=== PATIENT | female | born 1935 | race African-American/Black ===

== ENCOUNTER 2018-09-08 09:14 | Emergency (ER) | payer MEDICAID, OTHER ==
[~2018-09-08] VITALS: Ht 165.1 cm; Wt 95.0 kg
[~2018-09-08 09:14] MED LIST: DIGO250T81; HYDR-4005 PO; HYDR100T31; LOSA50TA20; METF-414; NORT25CA5 PO; POTA20TA12; SIMV20TA6 PO; TRIA1TAB5 PO; WARF5TAB76 PO
[2018-09-08 09:24] VITALS: BP 120/57
== END 2018-09-08 10:59 | disposition left against medical advice (07) ==
LOC: ER 09:14
DX: Z53.21 Procedure and treatment not carried out due to patient leaving prior to being seen by health care provider (principal)
CPT/HCPCS: 82962; 93005

== ENCOUNTER 2021-04-25 22:43 | Emergency (ER) | payer OTHER ==
[~2021-04-25] VITALS: Ht 172.7 cm; Wt 86.0 kg
[~2021-04-25 22:43] MED LIST changes: +DIGO-31; -DIGO250T81; -LOSA50TA20; +LOSA50TA41; +SIMV-43 PO; -SIMV20TA6 PO
[2021-04-26 00:08] LABS: BASOPHILS % 1.3 % (0.0-2.0); EOSINOPHILS % 2.1 % (0.0-5.0); HEMATOCRIT. 39.1 % (36.0-48.0); HEMOGLOBIN. 12.3 g/dL (12.0-16.0); MEAN CORPUSCULAR VOLUME 86.1 fL (81.0-99.0); MEAN PLATELET VOLUME 8.9 fl (7.4-10.4); MONOCYTES % 9.3 % (2.0-8.0); NEUTROPHILS % 56.3 % (40.0-76.0); PLATELET 231 x1000/uL (130-400); RED BLOOD CELL COUNT 4.55 mill/uL (4.2-5.4); RED CELL DISTRIBUTION WIDTH 15.5 % (11.6-14.6)
[2021-04-26 00:25] LABS: CHLORIDE 109 mEq/L (98-107)
[2021-04-26 01:21] LABS: INR 4.1; PROTHROMBIN TIME 39.4 sec (9.6-11.0)
[2021-04-26] MEDS ORDERED: AMOX-424 MT (05:18)
[2021-04-26 05:46] LABS: CLARITY URINE CLEAR (CLEAR); COLOR URINE YELLOW (YELLOW); KETONES URINE NEGATIVE (NEGATIVE); LEUKOCYTE ESTERASE URINE NEGATIVE (NEGATIVE); NITRITE URINE NEGATIVE (NEGATIVE); OCCULT BLOOD URINE NEGATIVE (NEGATIVE); PH URINE 7.5 (4.5-8.0); PROTEIN URINE NEGATIVE (NEGATIVE); UROBILINOGEN URINE 0.2 E.U./dL (0.2-1.0)
[2021-04-26] MEDS: TRIAMTERENE/HYDROCHLOROTHIAZID 75/50MG TABLET PO SCH (05:51)
[2021-04-26] MEDS: LOSARTAN POTASSIUM 50 MG TABLET PO ONE (05:51)
[2021-04-26] MEDS: HYDRALAZINE HCL 100MG TABLET PO ONE (05:51)
[2021-04-26] MEDS ORDERED: IOHEXOL-300 100 ML BOTTLE ONE (06:54)
[2021-04-26 07:30] VITALS: BP 162/66
== END 2021-04-26 07:50 | disposition home or self-care (01) ==
LOC: ER 22:43
DX: K57.92 Diverticulitis of intestine, part unspecified, without perforation or abscess without bleeding (principal); E11.9 Type 2 diabetes mellitus without complications; I10 Essential (primary) hypertension; Z79.899 Other long term (current) drug therapy; Z98.890 Other specified postprocedural states
CPT/HCPCS: 36415; 70450; 71045; 74177; 80053; 81003; 82962; 83690; 83880; 84484; 85025; 85610; 93005; 99285; Q9967

== ENCOUNTER 2023-07-11 09:15 | Emergency (ER) | payer OTHER ==
[~2023-07-11] VITALS: Ht 165.1 cm; Wt 75.0 kg
[~2023-07-11 09:15] MED LIST changes: +AMOX-424 MT; +POTA-194; -POTA20TA12
[2023-07-11 09:17] VITALS: O2SAT 99
[2023-07-11] MEDS ORDERED: ACETAMINOPHEN 325MG TABLET PO STA (09:29)
[2023-07-11 09:54] LABS: BASOPHILS % 1.1 % (0.0-2.0); EOSINOPHILS % 2.1 % (0.0-5.0); HEMATOCRIT. 35.7 % (36.0-48.0); HEMOGLOBIN. 11.2 g/dL (12.0-16.0); LYMPHOCYTES % 36.3 % (20.0-50.0); MEAN CORPUSCULAR HEMOGLOBIN 27.5 pg (28.0-32.0); MEAN CORPUSCULAR HGB CONC 31.4 g/dL (31.0-37.0); MEAN CORPUSCULAR VOLUME 87.5 fL (81.0-99.0); MEAN PLATELET VOLUME 8.8 fl (7.4-10.4); MONOCYTES % 10.3 % (2.0-8.0); NEUTROPHILS % 50.2 % (40.0-76.0); PLATELET 233 x1000/uL (130-400); RED BLOOD CELL COUNT 4.08 mill/uL (4.2-5.4); RED CELL DISTRIBUTION WIDTH 15.6 % (11.6-14.6); WHITE BLOOD COUNT 5.2 x1000/uL (4.5-11.0)
[2023-07-11 10:05] LABS: ALANINE AMINOTRANSFERASE < 7 IU/L (10-49); ASPARTATE AMINOTRANSFERASE 13 IU/L (<34); BILIRUBIN TOTAL 0.3 mg/dL (0.1-1.0); CARBON DIOXIDE 17 mEq/L (21-32); CHLORIDE 111 mEq/L (98-107); CREATININE 1.7 mg/dL (0.6-1.0); GLUCOSE 96 mg/dL (70-105); POTASSIUM 5.5 mEq/L (3.5-5.1); PROTEIN TOTAL 7.3 g/dL (6.0-8.3); SODIUM 136 mEq/L (136-145); TROPONIN I HIGH SENSITIVITY 22 ng/L (3.0-34); UREA NITROGEN BLOOD 29 mg/dL (9-23)
[2023-07-11] MEDS ORDERED: ACETAMINOPHEN 325MG TABLET PO NR (11:15)
[2023-07-11 13:00] VITALS: BP 160/72; PULSE 55; RESP 18; TEMP 98.5
== END 2023-07-11 13:24 | disposition short-term general hospital (02) ==
LOC: ER 09:23 → CANBEDREQ 10:59 → ER 13:24
DX: R06.00 Dyspnea, unspecified (principal); R07.89 Other chest pain; I10 Essential (primary) hypertension; E78.00 Pure hypercholesterolemia, unspecified; E11.9 Type 2 diabetes mellitus without complications; Z79.899 Other long term (current) drug therapy
CPT/HCPCS: 36415; 71045; 72170; 74176; 80053; 83880; 84484; 85025; 99285

== ENCOUNTER 2023-08-09 06:38 | Emergency (ER) | payer OTHER ==
[~2023-08-09] VITALS: Ht 172.7 cm; Wt 88.0 kg
[2023-08-09 06:50] VITALS: O2SAT 97
[2023-08-09] MEDS ORDERED: LIDOCAINE 5% PATCH TOP STA (09:25)
[2023-08-09] MEDS ORDERED: METHYLPREDNISOLONE SOD SUCC 125MG/2ML (ACT-O-VIAL) IM ONE (09:30)
[2023-08-09] MEDS ORDERED: KETOROLAC 60MG/2ML VIAL IM ONE (09:30)
[2023-08-09] MEDS ORDERED: HYDROCODONE/ACETAMINOPHEN 5/325MG TABLET PO ONE (09:30)
[2023-08-09] MEDS: HYDROCODONE/ACETAMINOPHEN 5/325MG TABLET PO NR (12:15)
[2023-08-09] MEDS: LIDOCAINE 5% PATCH TOP NR (12:35)
[2023-08-09] MEDS: METHYLPREDNISOLONE SOD SUCC 125MG/2ML (ACT-O-VIAL) IM NR (12:36)
[2023-08-09] MEDS: KETOROLAC 30MG/ML VIAL IM NR (12:36)
[2023-08-09 15:20] VITALS: BP 163/88; PULSE 76; RESP 16; TEMP 98.8
== END 2023-08-09 15:20 | disposition home or self-care (01) ==
LOC: ER 06:38
DX: M25.561 Pain in right knee (principal); M17.11 Unilateral primary osteoarthritis, right knee; E11.9 Type 2 diabetes mellitus without complications; I10 Essential (primary) hypertension; Z79.899 Other long term (current) drug therapy
CPT/HCPCS: 99285; 93971; 72170; 73560; 96372; J1885; J2930